=== PATIENT | male | born 1965 | race Caucasian/White ===

== ENCOUNTER 2023-12-09 06:13 | Day surgery (SDC) | payer OTHER ==
[2023-12-09] VITALS (14 sets, daily range): BP systolic 91–130; BP diastolic 61–95
[~2023-12-09] VITALS: Ht 160 cm; Wt 88.5 kg
[~2023-12-09 06:13] MED LIST: ATOR10 PO; BUPR100ER PO; LOSA50 PO; TRAZ50 PO
[2023-12-09] MEDS ORDERED: MASOPHEN500 MG PO (06:30)
--- NOTE | 2023-12-09 07:23 | NUR ---
KNEE HIGH OG HOSE AND CALF PAS APPLIED TO RLE.
--- NOTE | 2023-12-09 10:17 | NUR ---
ARRIVAL TO SURGICAL UNIT ALERT, PLEASANT, & SMILING. SPINAL WORKING WELL TO CONTROL PAIN. ABLE TO WIGGLE TOES BUT NOT MOVE ANKLES/LEGS. ASSESSMENT CHARTED. DENIES N/V. SNACKS & DRINKS GIVEN. CALL TO GIRLFRIEND TO UPDATE HER.
[2023-12-09] MEDS ORDERED: ASPI81CH PO (15:24)
[2023-12-09] MEDS ORDERED: OXYC5 PO (15:24)
--- NOTE | 2023-12-09 16:05 | NUR ---
DISCHARGE PT HAS CLEARED THERAPY. PAIN WELL CONTROLLED. EATING, DRINKING, & VOIDING WELL. SHELLY & BRAD GOVEA SENT w/ PT. RX AT [facility]. ESCORTED OUT VIA W/C.
--- NOTE | 2023-12-09 16:40 | NUR ---
DISCHARGE EDUCATION PT HAS CLEARED THERAPY. PAIN WELL CONTROLLED. EATING, DRINKING, & VOIDING WELL. SHELLY & BRAD PACK SENT w/ PT. RX AT [facility]. LEFT TO GO GET RX THEN PLANS TO DC HOME.
== END 2023-12-09 16:05 | disposition home or self-care (01) ==
LOC: ORSCMMR 06:13 → ORD 07:30 → ORSCMMR 07:30 → SURS 10:05 → ORSCMMR 16:05
PROVIDERS: Orthopaedic Surgery
PROC: 0SRD0JA Replacement of Left Knee Joint with Synthetic Substitute, Uncemented, Open Approach (ICD-10-PCS; principal; 2023-12-09 07:30)
DX: M17.12 Unilateral primary osteoarthritis, left knee (principal); I10 Essential (primary) hypertension; Z87.891 Personal history of nicotine dependence; F32.A Depression, unspecified; Z79.899 Other long term (current) drug therapy; E66.9 Obesity, unspecified; Z68.34 Body mass index [BMI] 34.0-34.9, adult
CPT/HCPCS: 73560-LT; 97110; 97116; 97161; 97530; A9270; C1713; C1776; J0171; J0690; J0735; J1885; J2704; J2795; J3010; J7120

== ENCOUNTER 2024-04-22 09:42 | Day surgery (SDC) | payer OTHER ==
[2024-04-22] VITALS (15 sets, daily range): BP systolic 101–143; BP diastolic 74–100
[~2024-04-22] VITALS: Ht 160 cm; Wt 84.6 kg
[~2024-04-22 09:42] MED LIST changes: +ASPI81CH PO; +ATOMOXETINE HCL80 M1 PO; +Lactated Ringer's 1,000 ML IV SCH; +MASOPHEN500 MG PO; +OXYC5 PO; +propofoL 40 ML IV ONE
--- NOTE | 2024-04-22 10:15 | NUR ---
Ambulatory in Day Surgery History, Chart, Medications and Allergies reviewed before start of procedure. Pre-Op teaching done. Pt verbalizes understanding. Patient States Post-Procedure ride home has been arranged.
--- NOTE | 2024-04-22 10:38 | NUR ---
04/22/24 Verito Gordon HISTORY, CHART, MEDICATIONS AND ALLERGIES REVIEWED BEFORE START OF PROCEDURE. PATIENT CONFIRMS NPO STATUS AND AGREES WITH SCHEDULED PROCEDURE. 3-LEAD EKG REVIEWED WITH PHYSICIAN PRIOR TO START OF PROCEDURE. MONITOR INTACT WITH CONTINUOUS PULSE OXIMETRY,CAPNOGRAPHY, 3-LEAD EKG, INTERMITTENT BP. SUPPLEMENTAL O2 TO BE TITRATED THROUGHOUT PROCEDURE TO MAINTAIN O2 SATURATION ABOVE 90%. PATIENT DETERMINED TO BE ASA APPROPRIATE FOR PROPOFOL SEDATION PRIOR TO START OF PROCEDURE BY DR. CHRISTIANSEN
--- NOTE | 2024-04-22 11:35 | NUR ---
Patient up to Ambulate independently. Gait steady. Discharge instructions reviewed with patient. Patient verbalizes understanding. Copy given to patient to take home. Discharged via wheelchair to private car for ride home. ALL BELONGINGS RETURNED TO PT.
== END 2024-04-22 23:02 | disposition home or self-care (01) ==
LOC: ORSCMMR 09:42 → ORD 10:30 → ORSCMMR 10:30
PROVIDERS: Internal Medicine Gastroenterology
PROC: 0DBM8ZX Excision of Descending Colon, Via Natural or Artificial Opening Endoscopic, Diagnostic (ICD-10-PCS; principal; 2024-04-22 10:30)
PROC: 0DBP8ZX Excision of Rectum, Via Natural or Artificial Opening Endoscopic, Diagnostic (ICD-10-PCS; principal; 2024-04-22 10:30)
DX: Z12.11 Encounter for screening for malignant neoplasm of colon (principal); Z86.010 Personal history of colon polyps; K63.5 Polyp of colon; K57.30 Diverticulosis of large intestine without perforation or abscess without bleeding; E78.00 Pure hypercholesterolemia, unspecified; I10 Essential (primary) hypertension; J44.9 Chronic obstructive pulmonary disease, unspecified; F17.210 Nicotine dependence, cigarettes, uncomplicated; F90.9 Attention-deficit hyperactivity disorder, unspecified type; Z79.899 Other long term (current) drug therapy; Z68.34 Body mass index [BMI] 34.0-34.9, adult
CPT/HCPCS: 88305; J2704; J7120

== ENCOUNTER 2024-07-06 06:40 | Day surgery (SDC) | payer OTHER ==
[~2024-07-06] VITALS: Ht 160 cm; Wt 85.8 kg
[~2024-07-06 06:40] MED LIST changes: +Lactated Ringer's 1,000 ML IV ONE; -Lactated Ringer's 1,000 ML IV SCH; -propofoL 40 ML IV ONE
[2024-07-06] MEDS ORDERED: Lactated Ringer's 1,000 ML IV ONE (06:58)
[2024-07-06] MEDS ORDERED: MELO7.5 PO (07:02)
--- NOTE | 2024-07-06 07:27 | NUR ---
07/06/24 0727 Nieves Nguyen 8ML LIDOCAINE 1% WITH EPI 1:100,000 BUFFERRED WITH 1ML SODIUM BICARB INJECTED INTO OP SITE BY DR JOHNSON AT 0721. PT TOLERATED WELL.
[2024-07-06] MEDS ORDERED: propofoL 20 ML IV ONE (07:48)
[2024-07-06 08:16] VITALS: BP 140/94
--- NOTE | 2024-07-06 08:23 | NUR ---
07/06/24 0823 Devika Mccall NO QUESTIONS OR CONCERNS
== END 2024-07-06 08:27 | disposition home or self-care (01) ==
LOC: ORSCSDS 06:40
PROVIDERS: Orthopaedic Surgery
PROC: 01N54ZZ Release Median Nerve, Percutaneous Endoscopic Approach (ICD-10-PCS; principal; 2024-07-06 08:00)
DX: G56.03 Carpal tunnel syndrome, bilateral upper limbs (principal); I10 Essential (primary) hypertension; E78.5 Hyperlipidemia, unspecified; F32.A Depression, unspecified; Z79.899 Other long term (current) drug therapy; Z87.891 Personal history of nicotine dependence
CPT/HCPCS: J2704; J7120

== ENCOUNTER 2024-12-21 08:13 | Day surgery (SDC) | payer OTHER ==
[~2024-12-21] VITALS: Ht 160 cm; Wt 84.6 kg
[~2024-12-21 08:13] MED LIST changes: -Lactated Ringer's 1,000 ML IV ONE; +MELO7.5 PO; +NS 500 ML IV ONE
[2024-12-21] MEDS ORDERED: NS 500 ML IV ONE (08:40)
--- NOTE | 2024-12-21 08:47 | NUR ---
12/21/24 0847 Aurelia Guillory PT. VERBALIZES HAVING LEFT KNEE PAIN RATING A "3". LEFT KNEE UP ON PILLOW.
[2024-12-21] MEDS ORDERED: FentaNYL Citrate 50 MCG/ML 2 ML Injection ONE (09:11)
[2024-12-21] MEDS ORDERED: propofoL 20 ML IV ONE (09:11)
[2024-12-21 10:01] VITALS: BP 138/94
== END 2024-12-21 10:22 | disposition home or self-care (01) ==
LOC: ORSCSDS 08:13
PROVIDERS: Orthopaedic Surgery
PROC: 01N54ZZ Release Median Nerve, Percutaneous Endoscopic Approach (ICD-10-PCS; principal; 2024-12-21 09:45)
DX: G56.01 Carpal tunnel syndrome, right upper limb (principal); F32.A Depression, unspecified; I10 Essential (primary) hypertension; E78.5 Hyperlipidemia, unspecified; Z87.891 Personal history of nicotine dependence; Z79.899 Other long term (current) drug therapy
CPT/HCPCS: J2704; J3010; J7040